=== PATIENT | female | born 1960 | race Caucasian/White ===

== ENCOUNTER 2019-06-25 11:23 | Inpatient (IN) | payer OTHER, MEDICARE ==
[~2019-06-25] VITALS: Ht 152.4 cm; Wt 98.0 kg
[2019-06-25] MEDS ORDERED: DEXTROSE 50% 25 GM / 50ML DISP.SYRIN. IV ONE ×2 (12:15)
[2019-06-25] MEDS ORDERED: IV DEXTROSE 5% - 0.9 % NACL 1,000 ML IV ONE (12:15)
[2019-06-25 12:24] LABS: BASO % 0 % (0-3); EOS # 0.1 x10^3/uL (0.0-0.7); EOS % 2 % (0-3); HEMATOCRIT 40.3 % (36.0-47.0); HEMOGLOBIN 13.5 g/dL (12.0-15.5); LYMPH # 2.7 x10^3/uL (1.0-4.8); LYMPH % 43 % (24-48); MEAN CORPUSCULAR HEMOGLOBIN 30 pg (25-35); MEAN CORPUSCULAR HGB CONC 33 g/dL (31-37); MEAN CORPUSCULAR VOLUME 89 fL (79-100); MONO # 0.5 x10^3/uL (0.0-1.1); MONO % 7 % (0-9); NEUT # 2.9 x10^3/uL (1.8-7.7); NEUT % 47 % (31-73); PLATELET COUNT 178 x10^3/uL (140-400); RED BLOOD COUNT 4.52 x10^6/uL (3.50-5.40); RED CELL DISTRIBUTION WIDTH 14.5 % (11.5-14.5); WHITE BLOOD COUNT 6.2 x10^3/uL (4.0-11.0)
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
[2019-06-25 12:36] LABS: CALCIUM 8.6 mg/dL (8.5-10.1); CREATININE 0.8 mg/dL (0.6-1.0); GFR 73.2; POTASSIUM 3.6 mmol/L (3.5-5.1)
--- NOTE | 2019-06-25 12:38 | RAD ---
Exam performed: One view chest. Indication: Altered mental status Date of Service: 06/25/2019 12:11 PM Comparison: None available. Single AP upright portable view chest findings: Cardiomediastinal silhouette is within limits of normal. There is a nodularity/opacity in the left upper lobe as indicated on the image. The right lung is clear. No pleural effusion or pneumothorax seen. The bony structures are normal. Impression: Nodularity/infiltrate in the left upper lobe. Follow-up 2 views chest of appropriate therapy may be obtained to ensure interval resolution. Electronically signed by: Toshia Dominguez MD (06/25/2019 12:35 PM) [facility]
[2019-06-25 12:41] LABS: ALBUMIN 3.6 g/dL (3.4-5.0); ALBUMIN/GLOBULIN RATIO 1.1 (1.0-1.7); TOTAL BILIRUBIN 0.2 mg/dL (0.2-1.0); TOTAL PROTEIN 6.9 g/dL (6.4-8.2)
[2019-06-25] MEDS ORDERED: cefTRIAXone IV Push 1 GM VIAL. IVP ONE (13:00)
--- NOTE | 2019-06-25 13:08 | RAD ---
Exam performed: CT scan of the head without contrast. Date of Service: 06/25/2019. Comparison: None available. Clinical History: Altered mental status. Technique: Helical acquisitions are obtained from the foramen magnum to the vertex without intravenous administration of contrast. Findings: The ventricles are midline without evidence of dilatation. Normal kim-white differentiation is maintained. There is no extra axial fluid collection, intraparenchymal hemorrhage or mass lesion. The visualized portions of the orbits, paranasal sinuses and the mastoid air cells appear clear. The calvarium is intact. Impression: 1. No acute intracranial process detected. PQRS Compliance Statement: One or more of the following individualized dose reduction techniques were utilized for this examination: 1. Automated exposure control 2. Adjustment of the mA and/or kV according to patient size 3. Use of iterative reconstruction technique Electronically signed by: Toshia Dominguez MD (06/25/2019 1:05 PM) [facility]
[2019-06-25 13:42] LABS: BILIRUBIN,URINE NEGATIVE (NEG); CLARITY,URINE CLEAR; COLOR,URINE YELLOW; NITRITE,URINE NEGATIVE (NEG); PH,URINE 6.5; PROTEIN,URINE NEGATIVE (NEG-TRACE); UROBILINOGEN,URINE 0.2 mg/dL (0.2 mg/dL)
[2019-06-25 13:54] LABS: BACTERIA,URINE FEW /HPF (0-FEW); RBC,URINE 0 /HPF (0-2); SQUAMOUS EPITHELIAL CELL,UR FEW /LPF; WBC,URINE 0 /HPF (0-4)
[2019-06-25] MEDS ORDERED: IV DEXTROSE 5%-LACT RINGERS 1,000 ML IV ONE ×2 (14:00)
[2019-06-25] MEDS ORDERED: PIP/TAZO PER PHARMACY MC PRN (14:00)
[2019-06-25] MEDS ORDERED: PIPERACILLIN/TAZOBACTAM 3.375 GM in IV NORMAL SALINE 50ML 50 ML IV ONE (14:00)
[2019-06-25] MEDS ORDERED: ONDANSETRON PF 4 MG/2 ML VIAL. IV PRN (14:30)
[2019-06-25] MEDS ORDERED: ACETAMINOPHEN 325 MG TABLET. PO PRN (14:30)
[2019-06-25] MEDS ORDERED: fentaNYL PF VIAL 100 MCG/2 ML VIAL IV PRN (14:30)
[2019-06-25] MEDS ORDERED: IV NORMAL SALINE 1000ML BAG 1,000 ML IV ONE ×2 (15:45)
[2019-06-25] MEDS ORDERED: DEXTROSE 50% 25 GM / 50ML DISP.SYRIN. IV PRN (17:00)
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
[2019-06-25 17:15] VITALS: BP 141/76
[2019-06-25] MEDS: INSULIN LISPRO 300 UNITS/3 ML VIAL. SQ SCH (17:30)
[2019-06-25] MEDS ORDERED: MULT-245 PO (17:51)
[2019-06-25] MEDS ORDERED: PIPERACILLIN/TAZOBACTAM 3.375 GM in IV NORMAL SALINE 50ML 50 ML IV SCH (18:00)
[2019-06-25] MEDS ORDERED: EMTR1TAB8 PO (18:08)
[2019-06-25] MEDS ORDERED: POLY17PO29 PO (18:08)
[2019-06-25] MEDS ORDERED: ONDA4TAB7 PO (18:08)
[2019-06-25] MEDS ORDERED: FAMO20TA5 PO (18:08)
[2019-06-25] MEDS ORDERED: MIRT45TA53 PO (18:08)
[2019-06-25] MEDS ORDERED: ZOLP10TA4 PO (18:08)
[2019-06-25] MEDS ORDERED: PHEN37.53 PO (18:08)
[2019-06-25] MEDS ORDERED: ATOR10TA60 PO (18:08)
[2019-06-25] MEDS ORDERED: LACT1CAP29 PO (18:08)
[2019-06-25] MEDS ORDERED: ESTR42.53 VG (18:08)
[2019-06-25] MEDS ORDERED: AZEL137S3 NS (18:08)
[2019-06-25] MEDS ORDERED: PREG100C PO (18:08)
[2019-06-25] MEDS ORDERED: LEVO75TA5 PO (18:08)
[2019-06-25] MEDS ORDERED: METF10007 PO (18:08)
[2019-06-25] MEDS ORDERED: ESTR1PAT42 TD (18:08)
[2019-06-25] MEDS ORDERED: PRAZ1CAP2 PO (18:08)
[2019-06-25] MEDS ORDERED: FEXO180T81 PO (18:08)
[2019-06-25] MEDS ORDERED: CARB200T PO (18:08)
[2019-06-25] MEDS ORDERED: FLUT9.9S NS (18:08)
[2019-06-25] MEDS ORDERED: CYCL1DRO EACHEYE (18:08)
[2019-06-25] MEDS ORDERED: ARIP10TA9 PO (18:08)
[2019-06-25] MEDS ORDERED: LIDO1ADH TP (18:08)
[2019-06-25] MEDS ORDERED: SERT100T PO (18:08)
[2019-06-25] MEDS ORDERED: ROPI3TAB PO (18:08)
[2019-06-25] MEDS ORDERED: VENTOLIN HFA18 GM INH (18:08)
[2019-06-25] MEDS ORDERED: DOCU-109 PO (18:08)
[2019-06-25] MEDS ORDERED: FLUT1DIS3 IH (18:08)
[2019-06-25] MEDS: DOXYCYCLINE HYCLATE 100 MG in IV DEXTROSE 5% 100ML 100 ML IV SCH (18:40)
[2019-06-25] MEDS: cefTRIAXone IV Push 1 GM VIAL. IVP SCH (18:42)
[2019-06-25 19:00] VITALS: BP 127/66
[2019-06-25] MEDS ORDERED: carBAMazepine 200 MG TABLET PO SCH (21:30)
[2019-06-25 23:10] VITALS: BP 124/74
[2019-06-25] MEDS: ZOLPIDEM 5 MG TABLET. PO PRN (23:18)
[2019-06-25] MEDS: DOCUSATE SODIUM 100 MG CAPSULE. PO SCH (23:19)
[2019-06-25] MEDS: PREGABALIN 50 MG CAPSULE PO SCH (23:19)
[2019-06-25] MEDS: MIRTAZAPINE 15 MG TABLET PO SCH (23:20)
[2019-06-25] MEDS: ONDANSETRON ODT 4 MG TAB.RAPDIS. PO SCH (23:21)
[2019-06-25] MEDS: PRAZOSIN 1 MG CAPSULE. PO SCH (23:21)
[2019-06-25] MEDS: carBAMazepine 200 MG TABLET PO SCH (23:21)
[2019-06-25] MEDS: cycloSPORINE 0.05% OPHTH DROPERETTE. OU SCH (23:31)
[2019-06-25] MEDS: ALBUTEROL SULFATE 2.5 MG/3 ML NEBU. NEB SCH (23:33)
[2019-06-26] MEDS ORDERED: NON FORMULARY ITEM (Albuterol Sulfate (Ventolin Hfa Inhaler) 2 PUFF) INH SCH
[2019-06-26 03:00] VITALS: BP 107/59
[2019-06-26] MEDS: ALBUTEROL SULFATE 2.5 MG/3 ML NEBU. NEB SCH ×6 (06:00→23:26)
[2019-06-26] MEDS: ONDANSETRON ODT 4 MG TAB.RAPDIS. PO SCH ×3 (06:00→21:21)
[2019-06-26] MEDS: LEVOTHYROXINE 75 MCG TABLET PO SCH (06:20)
[2019-06-26 07:00] VITALS: BP 97/47
[2019-06-26] MEDS: BUDESONIDE 0.5 MG/2 ML NEBU. NEB SCH ×2 (07:16→20:11)
[2019-06-26] MEDS: INSULIN LISPRO 300 UNITS/3 ML VIAL. SQ SCH ×3 (08:00→16:47)
[2019-06-26] MEDS: metFORMIN 500 MG TABLET PO SCH ×2 (08:00→12:52)
[2019-06-26] MEDS: FLUTICASONE 50MCG/NASAL SPRAY 16GM BOTTLE. NS SCH (08:24)
[2019-06-26] MEDS: AZELASTINE NASAL SPRAY 30ML BOTTLE. NS SCH ×2 (08:24→21:14)
[2019-06-26] MEDS: LIDOCAINE (700MG/PATCH) PATCH. TD SCH (08:24)
[2019-06-26] MEDS: POLYETHYLENE GLYCOL 3350 17 GM PACKET. PO SCH (08:25)
[2019-06-26] MEDS: ARIPiprazole 5 MG TABLET PO SCH (08:25)
[2019-06-26] MEDS: EMTRICITAB/TENOFOVIR 200/300MG TABLET. PO SCH (08:25)
[2019-06-26] MEDS: LACTOBACILLUS RHAMNOSUS GG 1 CAPSULE. PO SCH (08:26)
[2019-06-26] MEDS: PREGABALIN 50 MG CAPSULE PO SCH ×3 (08:26→21:13)
[2019-06-26] MEDS: SERTRALINE 50 MG TABLET. PO SCH (08:26)
[2019-06-26] MEDS: CETIRIZINE HCL 10 MG TABLET. PO SCH (08:26)
[2019-06-26] MEDS: DOCUSATE SODIUM 100 MG CAPSULE. PO SCH ×2 (08:26→21:13)
[2019-06-26] MEDS: MULTIVITAMIN with MINERAL TABLET. PO SCH (08:27)
[2019-06-26] MEDS: cycloSPORINE 0.05% OPHTH DROPERETTE. OU SCH ×2 (08:27→21:13)
[2019-06-26] MEDS: carBAMazepine 200 MG TABLET PO SCH ×2 (08:27→21:13)
[2019-06-26] MEDS: FAMOTIDINE 20 MG TABLET. PO SCH (08:27)
[2019-06-26] MEDS: DOXYCYCLINE HYCLATE 100 MG in IV DEXTROSE 5% 100ML 100 ML IV SCH ×2 (08:28→21:11)
[2019-06-26] MEDS ORDERED: rOPINIRole 1 MG TABLET. PO SCH (09:00)
[2019-06-26] MEDS ORDERED: NON FORMULARY ITEM (Fluticasone/Salmeterol (Advair 250-50 Diskus) 1 PUFF) IH SCH (09:00)
--- NOTE | 2019-06-26 10:17 | PDOC3 ---
Discharge Summary Visit Information Date of Admission: Jun 25, 2019 Date of Discharge: Jun 26, 2019 Admitting Diagnosis Comment: She came in for incidental findingiof nodularity or haziness (BERENICE) non smoker, She takes HIV as preventative, She was confused bec BS 40s, on metformin only and admitted did not eat bec had some plans with the hubby, SHe is better now with normalization of BS. I rxd z pack, She was getting doxy by colleague, HOme today with no PT needs and no change in meds except z pack Cancel neuro consult Thad Gutiérrez Final Diagnosis Problems Medical Problems: (1) Hypoglycemia Status: Acute (2) Pneumonia Status: Acute Brief Hospital Course Allergies Allergies Coded Allergies Type Severity Reaction Last Updated Verified Sulfa (Sulfonamide Antibiotics) Allergy Intermediate 06/25/19 Yes meperidine Allergy Intermediate 06/25/19 Yes Vital Signs Vital Signs Date Time Temp Pulse Resp B/P (MAP) Pulse Ox O2 Delivery O2 Flow Rate FiO2 06/26/19 07:19 98 Room Air 06/26/19 07:00 97.4 77 18 97/47 (64) 97.4 Lab Results Laboratory Tests Test 06/25/19 11:54 06/25/19 12:00 06/25/19 12:34 06/25/19 13:07 Glucose (Fingerstick) 45 mg/dL (70-99) 195 mg/dL (70-99) 151 mg/dL (70-99) White Blood Count 6.2 x10^3/uL (4.0-11.0) Red Blood Count 4.52 x10^6/uL (3.50-5.40) Hemoglobin 13.5 g/dL (12.0-15.5) Hematocrit 40.3 % (36.0-47.0) Mean Corpuscular Volume 89 fL (79-100) Mean Corpuscular Hemoglobin 30 pg (25-35) Mean Corpuscular Hemoglobin Concent 33 g/dL (31-37) Red Cell Distribution Width 14.5 % (11.5-14.5) Platelet Count 178 x10^3/uL (140-400) Neutrophils (%) (Auto) 47 % (31-73) Lymphocytes (%) (Auto) 43 % (24-48) Monocytes (%) (Auto) 7 % (0-9) Eosinophils (%) (Auto) 2 % (0-3) Basophils (%) (Auto) 0 % (0-3) Neutrophils # (Auto) 2.9 x10^3/uL (1.8-7.7) Lymphocytes # (Auto) 2.7 x10^3/uL (1.0-4.8) Monocytes # (Auto) 0.5 x10^3/uL (0.0-1.1) Eosinophils # (Auto) 0.1 x10^3/uL (0.0-0.7) Basophils # (Auto) 0.0 x10^3/uL (0.0-0.2) Sodium Level 139 mmol/L (136-145) Potassium Level 3.6 mmol/L (3.5-5.1) Chloride Level 104 mmol/L (98-107) Carbon Dioxide Level 25 mmol/L (21-32) Anion Gap 10 (6-14) Blood Urea Nitrogen 12 mg/dL (7-20) Creatinine 0.8 mg/dL (0.6-1.0) Estimated GFR (Cockcroft-Gault) 73.2 BUN/Creatinine Ratio 15 (6-20) Glucose Level 61 mg/dL (70-99) Lactic Acid Level 2.3 mmol/L (0.4-2.0) Calcium Level 8.6 mg/dL (8.5-10.1) Total Bilirubin 0.2 mg/dL (0.2-1.0) Aspartate Amino Transf (AST/SGOT) 23 U/L (15-37) Alanine Aminotransferase (ALT/SGPT) 14 U/L (14-59) Alkaline Phosphatase 96 U/L (46-116) Troponin I Quantitative < 0.017 ng/mL (0.000-0.055) Total Protein 6.9 g/dL (6.4-8.2) Albumin 3.6 g/dL (3.4-5.0) Albumin/Globulin Ratio 1.1 (1.0-1.7) Test 06/25/19 13:40 06/25/19 13:50 06/25/19 16:02 06/25/19 17:10 Urine Collection Type Unknown Urine Color Yellow Urine Clarity Clear Urine pH 6.5 Urine Specific [place] 1.010 Urine Protein Negative mg/dL (NEG-TRACE) Urine Glucose (UA) 100 mg/dL (NEG) Urine Ketones (Stick) Negative mg/dL (NEG) Urine Blood Negative (NEG) Urine Nitrite Negative (NEG) Urine Bilirubin Negative (NEG) Urine Urobilinogen Dipstick 0.2 mg/dL (0.2 mg/dL) Urine Leukocyte Esterase Negative (NEG) Urine RBC 0 /HPF (0-2) Urine WBC 0 /HPF (0-4) Urine Squamous Epithelial Cells Few /LPF Urine Bacteria Few /HPF (0-FEW) Glucose (Fingerstick) 91 mg/dL (70-99) 136 mg/dL (70-99) Lactic Acid Level 1.2 mmol/L (0.4-2.0) Procalcitonin < 0.10 ng/mL (0.00-0.10) Test 06/25/19 17:23 06/25/19 18:17 06/25/19 19:25 06/25/19 19:55 Glucose (Fingerstick) 94 mg/dL (70-99) 110 mg/dL (70-99) 73 mg/dL (70-99) Lactic Acid Level 0.9 mmol/L (0.4-2.0) Test 06/25/19 21:17 06/25/19 22:02 06/25/19 23:09 06/26/19 02:06 Glucose (Fingerstick) 72 mg/dL (70-99) 95 mg/dL (70-99) 103 mg/dL (70-99) 110 mg/dL (70-99) Test 06/26/19 03:24 06/26/19 05:13 06/26/19 07:10 06/26/19 07:53 Glucose (Fingerstick) 112 mg/dL (70-99) 97 mg/dL (70-99) 120 mg/dL (70-99) 101 mg/dL (70-99) Test 06/26/19 09:19 Glucose (Fingerstick) 224 mg/dL (70-99) Laboratory Tests Test 06/25/19 11:54 06/25/19 12:00 06/25/19 12:34 06/25/19 13:07 Glucose (Fingerstick) 45 mg/dL (70-99) 195 mg/dL (70-99) 151 mg/dL (70-99) White Blood Count 6.2 x10^3/uL (4.0-11.0) Red Blood Count 4.52 x10^6/uL (3.50-5.40) Hemoglobin 13.5 g/dL (12.0-15.5) Hematocrit 40.3 % (36.0-47.0) Mean Corpuscular Volume 89 fL (79-100) Mean Corpuscular Hemoglobin 30 pg (25-35) Mean Corpuscular Hemoglobin Concent 33 g/dL (31-37) Red Cell Distribution Width 14.5 % (11.5-14.5) Platelet Count 178 x10^3/uL (140-400) Neutrophils (%) (Auto) 47 % (31-73) Lymphocytes (%) (Auto) 43 % (24-48) Monocytes (%) (Auto) 7 % (0-9) Eosinophils (%) (Auto) 2 % (0-3) Basophils (%) (Auto) 0 % (0-3) Neutrophils # (Auto) 2.9 x10^3/uL (1.8-7.7) Lymphocytes # (Auto) 2.7 x10^3/uL (1.0-4.8) Monocytes # (Auto) 0.5 x10^3/uL (0.0-1.1) Eosinophils # (Auto) 0.1 x10^3/uL (0.0-0.7) Basophils # (Auto) 0.0 x10^3/uL (0.0-0.2) Sodium Level 139 mmol/L (136-145) Potassium Level 3.6 mmol/L (3.5-5.1) Chloride Level 104 mmol/L (98-107) Carbon Dioxide Level 25 mmol/L (21-32) Anion Gap 10 (6-14) Blood Urea Nitrogen 12 mg/dL (7-20) Creatinine 0.8 mg/dL (0.6-1.0) Estimated GFR (Cockcroft-Gault) 73.2 BUN/Creatinine Ratio 15 (6-20) Glucose Level 61 mg/dL (70-99) Lactic Acid Level 2.3 mmol/L (0.4-2.0) Calcium Level 8.6 mg/dL (8.5-10.1) Total Bilirubin 0.2 mg/dL (0.2-1.0) Aspartate Amino Transf (AST/SGOT) 23 U/L (15-37) Alanine Aminotransferase (ALT/SGPT) 14 U/L (14-59) Alkaline Phosphatase 96 U/L (46-116) Troponin I Quantitative < 0.017 ng/mL (0.000-0.055) Total Protein 6.9 g/dL (6.4-8.2) Albumin 3.6 g/dL (3.4-5.0) Albumin/Globulin Ratio 1.1 (1.0-1.7) Test 06/25/19 13:40 06/25/19 13:50 06/25/19 16:02 06/25/19 17:10 Urine Collection Type Unknown Urine Color Yellow Urine Clarity Clear Urine pH 6.5 Urine Specific [place] 1.010 Urine Protein Negative mg/dL (NEG-TRACE) Urine Glucose (UA) 100 mg/dL (NEG) Urine Ketones (Stick) Negative mg/dL (NEG) Urine Blood Negative (NEG) Urine Nitrite Negative (NEG) Urine Bilirubin Negative (NEG) Urine Urobilinogen Dipstick 0.2 mg/dL (0.2 mg/dL) Urine Leukocyte Esterase Negative (NEG) Urine RBC 0 /HPF (0-2) Urine WBC 0 /HPF (0-4) Urine Squamous Epithelial Cells Few /LPF Urine Bacteria Few /HPF (0-FEW) Glucose (Fingerstick) 91 mg/dL (70-99) 136 mg/dL (70-99) Lactic Acid Level 1.2 mmol/L (0.4-2.0) Procalcitonin < 0.10 ng/mL (0.00-0.10) Test 06/25/19 17:23 06/25/19 18:17 06/25/19 19:25 06/25/19 19:55 Glucose (Fingerstick) 94 mg/dL (70-99) 110 mg/dL (70-99) 73 mg/dL (70-99) Lactic Acid Level 0.9 mmol/L (0.4-2.0) Test 06/25/19 21:17 06/25/19 22:02 06/25/19 23:09 06/26/19 02:06 Glucose (Fingerstick) 72 mg/dL (70-99) 95 mg/dL (70-99) 103 mg/dL (70-99) 110 mg/dL (70-99) Test 06/26/19 03:24 06/26/19 05:13 06/26/19 07:10 06/26/19 07:53 Glucose (Fingerstick) 112 mg/dL (70-99) 97 mg/dL (70-99) 120 mg/dL (70-99) 101 mg/dL (70-99) Test 06/26/19 09:19 Glucose (Fingerstick) 224 mg/dL (70-99) Brief Hospital Course Ms. Pederson is a 58 old [sex] who presented with [ ] Discharge Information Scheduled Albuterol Sulfate (Ventolin Hfa Inhaler) 18 Gm Hfa.aer.ad, 2 PUFF INH Q6HRS for FOR ASTHMA, Ref 0 (Reported) Entered as Reported by: JOSE ALEJANDRO CHAVEZ on 06/25/191807 Last Action: Converted on 06/25/192214 by MANN MEAD MD Aripiprazole (Abilify) 10 Mg Tablet, 1 TAB PO DAILY for s for 30 Days, #30 Ref 0 (Reported) Entered as Reported by: JOSE ALEJANDRO CHAVEZ on 06/25/191807 Last Action: Converted on 06/25/192214 by MANN MEAD MD Atorvastatin Calcium (Atorvastatin Calcium) 10 Mg Tablet, 1 TAB PO DAILY for hld, #30 Ref 5 (Reported) Entered as Reported by: JOSE ALEJANDRO CHAVEZ on 06/25/191807 Last Action: Continued on 06/25/192214 by MANN MEAD MD Azelastine Hcl (Azelastine Hcl) 137 Mcg/0.137 Ml [place].pump, 2 SPRAY NS BID for n for 30 Days, #30 Ref 0 (Reported) Entered as Reported by: JOSE ALEJANDRO CHAVEZ on 06/25/191807 Last Action: Continued on 06/25/192214 by MANN MEAD MD Carbamazepine (Tegretol) 200 Mg Tablet, 1 TAB PO BID for nerve pain, #60 Ref 1 (Reported) Entered as Reported by: JOSE ALEJANDRO CHAVEZ on 06/25/191807 Last Action: Continued on 06/25/192214 by MANN MEAD MD Cyclosporine (Restasis) 1 Each Drope[place], 1 DROP EACHEYE BID for dry eye, #60 Ref 3 (Reported) Entered as Reported by: JOSE ALEJANDRO CHAVEZ on 06/25/191807 Last Action: Continued on 06/25/192214 by MANN MEAD MD Docusate Sodium (Colace) 100 Mg Capsule, 1 CAP PO BID for constipation for 30 Days, #60 Ref 0 (Reported) Entered as Reported by: JOSE ALEJANDRO CHAVEZ on 06/25/191807 Last Action: Continued on 06/25/192214 by MANN MEAD MD Emtricitabine/Tenofovir (Truvada 200 Mg-300 Mg Tablet) 1 Each Tablet, 1 TAB PO DAILY for preventive for 30 Days, #30 Ref 0 (Reported) Entered as Reported by: JOSE ALEJANDRO CHAVEZ on 06/25/191807 Last Action: Continued on 06/25/192214 by MANN MEAD MD Estradiol (Estrace) 42.5 Gm Cream.appl, 1 GM VG 3X/WEEK for v, #1 Ref 11 (Reported) Entered as Reported by: JOSE ALEJANDRO CHAVEZ on 06/25/191807 Last Action: Continued on 06/25/192214 by MANN MEAD MD Estradiol (Climara) 1 Each Patch.tdwk, 1 PATCH TD WEEKLY for h for 28 Days, #4 Ref 0 (Reported) Entered as Reported by: JOSE ALEJANDRO CHAVEZ on 06/25/191807 Last Action: Converted on 06/25/192214 by MANN MEAD MD Famotidine (Famotidine) 20 Mg Tablet, 20 MG PO DAILY for gerd, (Reported) Entered as Reported by: JOSE ALEJANDRO CHAVEZ on 06/25/191807 Last Action: Continued on 06/25/192214 by MANN MEAD MD Fexofenadine Hcl (Seema Allergy) 180 Mg Tablet, 1 TAB PO DAILY for allergy symptoms for 14 Days, #14 Ref 0 (Reported) Entered as Reported by: JOSE ALEJANDRO CHAVEZ on 06/25/191807 Last Action: Converted on 06/25/192214 by MANN MEAD MD Fluticasone Propionate (Flonase Allergy Relief) 9.9 Ml [place].susp, 2 SPRAYS NS DAILY for allergy, (Reported) Entered as Reported by: JOSE ALEJANDRO CHAVEZ on 06/25/191807 Last Action: Converted on 06/25/192214 by MANN MEAD MD Fluticasone/Salmeterol (Advair 250-50 Diskus) 1 Each Disk.w.dev, 1 PUFF IH BID for ashtma, #3 Ref 3 (Reported) Entered as Reported by: JOSE ALEJANDRO CHAVEZ on 06/25/191807 Last Action: Converted on 06/25/192214 by MANN MEAD MD Lactobacillus Combo No.10 (Probiotic) 1 Each Capsule, 1 TAB PO DAILY for ppx for 30 Days, #30 Ref 0 (Reported) Entered as Reported by: JOSE ALEJANDRO CHAVEZ on 06/25/191807 Last Action: Converted on 06/25/192214 by MANN MEAD MD Levothyroxine Sodium (Levothyroxine Sodium) 75 Mcg Tablet, 1 TAB PO DAILY for hypothy, #30 Ref 5 (Reported) Entered as Reported by: JOSE ALEJANDRO CHAVEZ on 06/25/191807 Last Action: Continued on 06/25/192214 by MANN MEAD MD Lidocaine/Menthol (Lidopatch) 1 Each Adh..patch, 1 EACH TP DAILY for pain, (Reported) Entered as Reported by: JOSE ALEJANDRO CHAVEZ on 06/25/191807 Last Action: Converted on 06/25/192214 by MANN MEAD MD Metformin Hcl (Metformin Hcl) 1,000 Mg Tablet, 1,000 MG PO BIDWMEALS for DM, (Reported) Entered as Reported by: JOSE ALEJANDRO CHAVEZ on 06/25/191807 Last Action: Converted on 06/25/192214 by MANN MEAD MD Mirtazapine (Mirtazapine) 45 Mg Tab.rapdis, 1 TAB PO QHS for d for 30 Days, #30 Ref 0 (Reported) Entered as Reported by: JOSE ALEJANDRO CHAVEZ on 06/25/191807 Last Action: Converted on 06/25/192214 by MANN MEAD MD Multivitamin (Multi Vitamin Daily) 1 Each Tablet, 1 TAB PO DAILY for supp for 30 Days, #30 Ref 0 (Reported) Entered as Reported by: JOSE ALEJANDRO CHAVEZ on 06/25/191750 Last Action: Converted on 06/25/192214 by MANN MEAD MD Ondansetron Hcl (Zofran) 4 Mg Tablet, 1 TAB PO Q8HRS for nausea, #30 (Reported) Entered as Reported by: JOSE ALEJANDRO CHAVEZ on 06/25/191807 Last Action: Converted on 06/25/192214 by MANN MEAD MD Phentermine Hcl (Phentermine Hcl) 37.5 Mg Capsule, 1 CAP PO DAILYWBKFT for wt loss, #30 Ref 2 (Reported) Entered as Reported by: JOSE ALEJANDRO CHAVEZ on 06/25/191807 Last Action: New Order on 06/25/191807 by JOSE ALEJANDRO CHAVEZ Polyethylene Glycol 3350 (Miralax) 17 Gm Powd.pack, 1 PACKET PO DAILY for constipation for 2 Days, #2 Ref 0 (Reported) dissolve in water Entered as Reported by: JOSE ALEJANDRO CHAVEZ on 06/25/191807 Last Action: Continued on 06/25/192214 by MANN MEAD MD Prazosin Hcl (Prazosin Hcl) 1 Mg Capsule, 3 MG PO HS for PTSD, (Reported) Entered as Reported by: JOSE ALEJANDRO CHAVEZ on 06/25/191807 Last Action: Continued on 06/25/192214 by MANN MEAD MD Pregabalin (Lyrica) 100 Mg Capsule, 1 CAP PO TID for pain, #90 Ref 2 (Reported) Entered as Reported by: JOSE ALEJANDRO CHAVEZ on 06/25/191807 Last Action: Converted on 06/25/192214 by MANN MEAD MD Ropinirole Hcl (Requip) 3 Mg Tablet, 3 MG PO DAILY for RLS, (Reported) Entered as Reported by: JOSE ALEJANDRO CHAVEZ on 06/25/191807 Last Action: Converted on 06/25/192214 by MANN MEAD MD Sertraline Hcl (Zoloft) 100 Mg Tablet, 150 MG PO DAILY for ANTI-DEPRESSANT, Ref 0 (Reported) Entered as Reported by: JOSE ALEJANDRO CHAVEZ on 06/25/191807 Last Action: Converted on 06/25/192214 by MANN MEAD MD Scheduled PRN Zolpidem Tartrate (Zolpidem Tartrate) 10 Mg Tablet, 10 MG PO PRN QHS PRN for INSOMNIA, Ref 0 (Reported) Entered as Reported by: JOSE ALEJANDRO CHAVEZ on 06/25/191807 Last Action: New Order on 06/25/191807 by RAE SHI MD Jun 26, 2019 10:17
[2019-06-26 11:05] VITALS: BP 121/63
[2019-06-26 14:41] VITALS: BP 99/47
[2019-06-26] MEDS: cefTRIAXone IV Push 1 GM VIAL. IVP SCH (17:51)
[2019-06-26] MEDS: IV DEXTROSE 5%-LACT RINGERS 1,000 ML IV SCH (17:56)
[2019-06-26 19:10] VITALS: BP 140/76
[2019-06-26] MEDS: PATCH REMOVAL. MC SCH (21:00)
[2019-06-26] MEDS: ATORVASTATIN CALCIUM 10 MG TABLET. PO SCH (21:12)
[2019-06-26] MEDS: MIRTAZAPINE 15 MG TABLET PO SCH (21:12)
[2019-06-26] MEDS: PRAZOSIN 1 MG CAPSULE. PO SCH (21:12)
[2019-06-26 22:50] VITALS: BP 112/59
[2019-06-26] MEDS: ZOLPIDEM 5 MG TABLET. PO PRN (23:27)
[2019-06-27 03:10] VITALS: BP 105/58
[2019-06-27] MEDS: IV DEXTROSE 5%-LACT RINGERS 1,000 ML IV SCH ×2 (06:00→20:40)
--- NOTE | 2019-06-27 06:58 | EKG ---
[facility] [address] [place] [address] Test Date: 2019-06-25 Test Time: 12:35:49 Pat Name: CRUZ MAGANA Department: Room: Gender: F [employer]: : 1960 Requested By: ADAN HUFF Order Number: [id number] Reading MD: Measurements Intervals [place] Rate: 56 P: 64 NM: 194 QRS: 36 QRSD: 76 T: 36 QT: 422 QTc: 410 Interpretive Statements SINUS RHYTHM NO SPECIFIC ECG ABNORMALITIES RI6.01 No previous ECG available for comparison
[2019-06-27 07:00] VITALS: BP 123/74
[2019-06-27] MEDS: ALBUTEROL SULFATE 2.5 MG/3 ML NEBU. NEB SCH ×5 (07:47→23:26)
[2019-06-27] MEDS: BUDESONIDE 0.5 MG/2 ML NEBU. NEB SCH ×2 (07:47→19:56)
[2019-06-27] MEDS: ONDANSETRON ODT 4 MG TAB.RAPDIS. PO SCH ×3 (07:54→21:03)
[2019-06-27] MEDS: LEVOTHYROXINE 75 MCG TABLET PO SCH (07:55)
[2019-06-27] MEDS: FAMOTIDINE 20 MG TABLET. PO SCH (07:55)
[2019-06-27] MEDS: PREGABALIN 50 MG CAPSULE PO SCH ×3 (07:56→21:04)
[2019-06-27] MEDS: LACTOBACILLUS RHAMNOSUS GG 1 CAPSULE. PO SCH (07:56)
[2019-06-27] MEDS: DOCUSATE SODIUM 100 MG CAPSULE. PO SCH ×2 (07:57→21:02)
[2019-06-27] MEDS: CETIRIZINE HCL 10 MG TABLET. PO SCH (07:57)
[2019-06-27] MEDS: EMTRICITAB/TENOFOVIR 200/300MG TABLET. PO SCH (07:57)
[2019-06-27] MEDS: ARIPiprazole 5 MG TABLET PO SCH (07:57)
[2019-06-27] MEDS: MULTIVITAMIN with MINERAL TABLET. PO SCH (07:57)
[2019-06-27] MEDS: FLUTICASONE 50MCG/NASAL SPRAY 16GM BOTTLE. NS SCH (07:58)
[2019-06-27] MEDS: AZELASTINE NASAL SPRAY 30ML BOTTLE. NS SCH ×2 (07:58→21:06)
[2019-06-27] MEDS: SERTRALINE 50 MG TABLET. PO SCH (07:58)
[2019-06-27] MEDS: POLYETHYLENE GLYCOL 3350 17 GM PACKET. PO SCH (07:58)
[2019-06-27] MEDS: LIDOCAINE (700MG/PATCH) PATCH. TD SCH ×2 (07:59→09:00)
[2019-06-27] MEDS: metFORMIN 500 MG TABLET PO SCH ×2 (08:00→17:00)
[2019-06-27] MEDS: INSULIN LISPRO 300 UNITS/3 ML VIAL. SQ SCH ×3 (08:00→17:00)
[2019-06-27] MEDS: DOXYCYCLINE HYCLATE 100 MG in IV DEXTROSE 5% 100ML 100 ML IV SCH (08:01)
[2019-06-27] MEDS: carBAMazepine 200 MG TABLET PO SCH ×2 (08:50→21:04)
[2019-06-27] MEDS: cycloSPORINE 0.05% OPHTH DROPERETTE. OU SCH ×2 (08:50→21:02)
[2019-06-27] MEDS ORDERED: ESTRADIOL 0.01% VAGINAL CREAM 42.5GM TUBE. VG SCH ×2 (09:00→18:00)
[2019-06-27 11:00] VITALS: BP 116/66
--- NOTE | 2019-06-27 11:16 | PDOC ---
Provider Note Provider Note she did not dc yesterday bec of BS 40s in the PM NOw BS better Eating Only on metformin at home I wrote rx for glucometer, strips , needles and z pack dc summ done 06/26 Pt seen and examined dw RAE Martinez MD Jun 27, 2019 11:16
--- NOTE | 2019-06-27 12:04 | PDOC ---
Provider Note Provider Note BS 40S AGAIN! cLAIMS ONLY TOOK METFORMIN AT HOME SECOND TIME, SECOND DAY THIS HAPPENED PLAN: CHECK INSULIN ANTIBODIES AND INSULIN LEVELS CHECK C PEPTIDE R./O EXOGENOUS INSULIN INTAKE, IF NEG, AND HYPOGLYCEMIA PERSISTS, MIGHT NEED CT ABD R.O INSULINOMA WHICH IS VERY RARE RAE MORRISON MD Jun 27, 2019 12:04
[2019-06-27] MEDS ORDERED: AZITHROMYCIN 250 MG TABLET. PO ONE (12:30)
[2019-06-27 15:00] VITALS: BP 118/59
[2019-06-27 19:20] VITALS: BP 140/75
[2019-06-27] MEDS: PATCH REMOVAL. MC SCH (21:00)
[2019-06-27] MEDS: PRAZOSIN 1 MG CAPSULE. PO SCH (21:03)
[2019-06-27] MEDS: MIRTAZAPINE 15 MG TABLET PO SCH (21:03)
[2019-06-27] MEDS: ATORVASTATIN CALCIUM 10 MG TABLET. PO SCH (21:03)
[2019-06-27] MEDS: rOPINIRole 1 MG TABLET. PO SCH (21:03)
[2019-06-27 23:00] VITALS: BP 125/57
[2019-06-27] MEDS: ZOLPIDEM 5 MG TABLET. PO PRN (23:04)
[2019-06-28 03:10] VITALS: BP 104/57
[2019-06-28] MEDS: ONDANSETRON ODT 4 MG TAB.RAPDIS. PO SCH ×3 (06:41→21:04)
[2019-06-28] MEDS: LEVOTHYROXINE 75 MCG TABLET PO SCH (06:41)
[2019-06-28 07:00] VITALS: BP 105/59
[2019-06-28] MEDS: ALBUTEROL SULFATE 2.5 MG/3 ML NEBU. NEB SCH ×2 (07:31→19:31)
[2019-06-28] MEDS: BUDESONIDE 0.5 MG/2 ML NEBU. NEB SCH ×2 (07:31→19:31)
[2019-06-28] MEDS: INSULIN LISPRO 300 UNITS/3 ML VIAL. SQ SCH ×2 (08:00→12:00)
[2019-06-28] MEDS: POLYETHYLENE GLYCOL 3350 17 GM PACKET. PO SCH (08:27)
[2019-06-28] MEDS: LIDOCAINE (700MG/PATCH) PATCH. TD SCH (08:28)
[2019-06-28] MEDS: FAMOTIDINE 20 MG TABLET. PO SCH (08:29)
[2019-06-28] MEDS: SERTRALINE 50 MG TABLET. PO SCH (08:29)
[2019-06-28] MEDS: EMTRICITAB/TENOFOVIR 200/300MG TABLET. PO SCH (08:29)
[2019-06-28] MEDS: LACTOBACILLUS RHAMNOSUS GG 1 CAPSULE. PO SCH (08:29)
[2019-06-28] MEDS: ARIPiprazole 5 MG TABLET PO SCH (08:29)
[2019-06-28] MEDS: carBAMazepine 200 MG TABLET PO SCH ×2 (08:30→21:04)
[2019-06-28] MEDS: CETIRIZINE HCL 10 MG TABLET. PO SCH (08:30)
[2019-06-28] MEDS: MULTIVITAMIN with MINERAL TABLET. PO SCH (08:30)
[2019-06-28] MEDS: DOCUSATE SODIUM 100 MG CAPSULE. PO SCH ×2 (08:30→21:04)
[2019-06-28] MEDS: PREGABALIN 50 MG CAPSULE PO SCH ×3 (08:30→21:04)
[2019-06-28] MEDS: cycloSPORINE 0.05% OPHTH DROPERETTE. OU SCH ×2 (08:32→21:03)
[2019-06-28] MEDS: AZELASTINE NASAL SPRAY 30ML BOTTLE. NS SCH ×2 (08:39→21:03)
[2019-06-28] MEDS: FLUTICASONE 50MCG/NASAL SPRAY 16GM BOTTLE. NS SCH (08:39)
[2019-06-28] MEDS ORDERED: AZITHROMYCIN 250 MG TABLET. PO SCH (09:00)
[2019-06-28 09:11] LABS: INSULIN LEVEL 71.8 uIU/mL (2.6-24.9)
[2019-06-28] MEDS ORDERED: CONTRAST GIVEN. MC PRN (09:30)
[2019-06-28] MEDS ORDERED: IOHEXOL 300 MG/ML 100ML VIAL. IV ONE (09:30)
--- NOTE | 2019-06-28 10:37 | RAD ---
EXAM: CT ABDOMEN/PELVIS WITH CONTRAST. HISTORY: Persistent hyperglycemia. Concern for insulinoma. TECHNIQUE: Computed tomography of the abdomen and pelvis was performed after the intravenous administration of iodinated contrast. COMPARISON: None. FINDINGS: Lung windows through the visualized portions of the bases reveal an 8 mm pleural-based nodule in the left base on image 7. Bone windows reveal no suspicious lesions. There are changes of gastric bypass procedure. There is mild wall thickening of the distal esophagus. There is no small bowel obstruction. Sigmoid diverticulosis is moderate. The appendix is not inflamed. The uterus is surgically absent. The liver, pancreas, gallbladder, adrenal glands, spleen and kidneys are unremarkable. No mass is appreciated. There are no pathologically enlarged lymph nodes. IMPRESSION: 1. No mass suggestive of a neuroendocrine neoplasm is identified. If other serologies are positive, gallium-68 dotate PET could increase sensitivity. 2. Mild distal esophageal wall thickening may reflect peristalsis or esophagitis. 3. 8 mm left basilar indeterminate nodule. Follow-up is suggested in 6 months if long-term stability is not already known. *One or more of the following individualized dose reduction techniques were utilized for this examination: 1. Automated exposure control. 2. Adjustment of the mA and/or kV according to patient size. 3. Use of iterative reconstruction technique. Electronically signed by: Sarthak Pereyra MD (06/28/2019 10:35 AM) [facility]
[2019-06-28 11:00] VITALS: BP 124/67
--- NOTE | 2019-06-28 12:27 | PDOC ---
PROGRESS NOTES Chief Complaint Chief Complaint persistent hypoglycemia, (metformin at home only) Obesity CAP History of Present Illness History of Present Illness BS 54 now and she doesnt feel right GAve 2 apple juices, BS 114 SHE DENIES EXOGENOUS INSULIN I CT abd today look for insulinoma: IMPRESSION: 1. No mass suggestive of a neuroendocrine neoplasm is identified. If other serologies are positive, gallium-68 dotate PET could increase sensitivity. 2. Mild distal esophageal wall thickening may reflect peristalsis or esophagitis. 3. 8 mm left basilar indeterminate nodule. Follow-up is suggested in 6 months if long-term stability is not already known. PLAN: Hold dc, THIRD DAY THIS is happening Dextrose iVF on FILE SHE IS EATING Await insulin antibopdies etc Can dc home once SAFELY NOT HYPOGLY ANYMORE SHE ONLY TAKES METFORMIN< WHICH WE HAVE DCD DAY 1 , no insulin at home NO PT needs, home with the on dc Rx alreday on chart - abx z pack for "pna" dw RN Yoing TRANSFER TO NON TELE BED Vitals Vitals Vital Signs Date Time Temp Pulse Resp B/P (MAP) Pulse Ox O2 Delivery O2 Flow Rate FiO2 06/28/19 07:34 93 Room Air 06/28/19 07:00 97.9 65 20 105/59 (74) 97.9 Physical Exam General: Alert, Oriented X3, Cooperative, mild distress Abdomen: Normal bowel sounds, Soft, No tenderness, No hepatosplenomegaly, No masses Extremities: No clubbing, No cyanosis, No edema, Normal pulses, No tenderness/swelling Skin: No rashes, No breakdown, No significant lesion Labs LABS Laboratory Tests Test 06/27/19 13:15 06/27/19 15:18 06/27/19 17:10 06/27/19 20:32 Glucose (Fingerstick) 104 mg/dL (70-99) 140 mg/dL (70-99) 119 mg/dL (70-99) 102 mg/dL (70-99) Test 06/28/19 07:16 06/28/19 11:47 06/28/19 12:09 Glucose (Fingerstick) 84 mg/dL (70-99) 54 mg/dL (70-99) 114 mg/dL (70-99) Assessment and Plan Assessmemt and Plan Problems Medical Problems: (1) Hypoglycemia Status: Acute (2) Pneumonia Status: Acute Comment Review of Relevant I have reviewed the following items yari (where applicable) has been applied. Labs Laboratory Tests Test 06/26/19 13:56 06/26/19 15:10 06/26/19 17:26 06/26/19 19:20 Glucose (Fingerstick) 117 mg/dL (70-99) 114 mg/dL (70-99) 103 mg/dL (70-99) 136 mg/dL (70-99) Test 06/26/19 21:06 06/26/19 23:01 06/27/19 01:03 06/27/19 03:20 Glucose (Fingerstick) 164 mg/dL (70-99) 96 mg/dL (70-99) 174 mg/dL (70-99) 118 mg/dL (70-99) Test 06/27/19 05:20 06/27/19 07:24 06/27/19 09:14 06/27/19 11:46 Glucose (Fingerstick) 91 mg/dL (70-99) 128 mg/dL (70-99) 199 mg/dL (70-99) 55 mg/dL (70-99) Test 06/27/19 12:20 06/27/19 13:15 06/27/19 15:18 06/27/19 17:10 Insulin Level 71.8 uIU/mL (2.6-24.9) C-Peptide 8.3 ng/mL (1.1-4.4) Glucose (Fingerstick) 104 mg/dL (70-99) 140 mg/dL (70-99) 119 mg/dL (70-99) Test 06/27/19 20:32 06/28/19 07:16 06/28/19 11:47 06/28/19 12:09 Glucose (Fingerstick) 102 mg/dL (70-99) 84 mg/dL (70-99) 54 mg/dL (70-99) 114 mg/dL (70-99) Laboratory Tests Test 06/27/19 13:15 06/27/19 15:18 06/27/19 17:10 06/27/19 20:32 Glucose (Fingerstick) 104 mg/dL (70-99) 140 mg/dL (70-99) 119 mg/dL (70-99) 102 mg/dL (70-99) Test 06/28/19 07:16 06/28/19 11:47 06/28/19 12:09 Glucose (Fingerstick) 84 mg/dL (70-99) 54 mg/dL (70-99) 114 mg/dL (70-99) Microbiology 06/25/19 Blood Culture - Preliminary, Resulted NO GROWTH AFTER 2 DAYS Medications Current Medications Dextrose (Dextrose 50%-Water Syringe) 25 gm STK-MED ONCE IV ; Start 06/25/19 at 12:15; Stop 06/25/19 at 12:15; Status DC Dextrose (Dextrose 50%-Water Syringe) 25 gm 1X ONCE IV Last administered on 06/25/19at 12:15; Start 06/25/19 at 12:15; Stop 06/25/19 at 12:18; Status DC Dextrose/Sodium Chloride 1,000 ml @ 75 mls/hr 1X ONCE IV ; Start 06/25/19 at 12:15; Stop 06/26/19 at 01:34; Status DC Ceftriaxone Sodium (Rocephin) 1 gm STK-MED ONCE IVP ; Start 06/25/19 at 13:00; Stop 06/25/19 at 13:00; Status DC Piperacillin Sod/ Tazobactam Sod (Zosyn Per Pharmacy) 1 each PRN DAILY PRN MC SEE COMMENTS; Start 06/25/19 at 14:00; Stop 06/25/19 at 16:56; Status DC Dextrose/Lactated Ringer's 1,000 ml @ 75 mls/hr 1X ONCE IV Last administered on 06/25/19at 14:00; Start 06/25/19 at 14:00; Stop 06/26/19 at 03:19; Status DC Piperacillin Sod/ Tazobactam Sod 3.375 gm/Sodium Chloride 50 ml @ 100 mls/hr 1X ONCE IV Last administered on 06/25/19at 14:13; Start 06/25/19 at 14:00; Stop 06/25/19 at 14:29; Status DC Dextrose/Lactated Ringer's 1,000 ml @ 75 mls/hr 1X ONCE IV ; Start 06/25/19 at 14:00; Stop 06/26/19 at 03:19; Status DC Ondansetron HCl (Zofran) 4 mg PRN Q8HRS PRN IV NAUSEA/VOMITING; Start 06/25/19 at 14:30 Fentanyl Citrate (Fentanyl 2ml Vial) 50 mcg PRN Q1HR PRN IV PAIN; Start at 14:30; Stop 06/26/19 at 14:29; Status UNV Acetaminophen (Tylenol) 650 mg PRN Q4HRS PRN PO FEVER Last administered on 06/25/19at 16:08; Start 06/25/19 at 14:30 Piperacillin Sod/ Tazobactam Sod 3.375 gm/Sodium Chloride 50 ml @ 100 mls/hr Q6HRS IV ; Start 06/25/19 at 18:00; Stop 06/25/19 at 16:56; Status DC Sodium Chloride 1,000 ml @ 1,000 mls/hr 1X ONCE IV ; Start 06/25/19 at 15:45; Stop 06/25/19 at 16:44; Status Cancel Sodium Chloride 1,000 ml @ 1,000 mls/hr 1X ONCE IV ; Start 06/25/19 at 15:45; Stop 06/25/19 at 16:44; Status Cancel Ceftriaxone Sodium (Rocephin) 1 gm Q24H IVP Last administered on 06/26/19at 17:51; Start 06/25/19 at 18:00; Stop 06/27/19 at 12:06; Status DC Doxycycline Hyclate 100 mg/ Dextrose 100 ml @ 50 mls/hr Q12HR IV Last administered on 06/27/19at 08:01; Start 06/25/19 at 18:00; Stop 06/27/19 at 12:06; Status DC Insulin Human Lispro (HumaLOG) 0-5 UNITS TIDWMEALS SQ ; Start 06/25/19 at 17:30 Dextrose (Dextrose 50%-Water Syringe) 12.5 gm PRN Q15MIN PRN IV SEE COMMENTS; Start 06/25/19 at 17:00 Atorvastatin Calcium (Lipitor) 10 mg HS PO Last administered on 06/27/19at 21:03; Start 06/26/19 at 21:00 Azelastine HCl (Astelin) 2 spray BID NS Last administered on 06/28/19at 08:39; Start 06/26/19 at 09:00 Carbamazepine (TEGretol) 200 mg BID PO ; Start 06/25/19 at 21:30; Stop 06/25/19 at 22:21; Status DC Cyclosporine (Restasis) 1 drop BID OU Last administered on 06/28/19 08:32; Start 06/25/19 at 22:30 Docusate Sodium (Colace) 100 mg BID PO Last administered on 06/28/19 08:30; Start 06/25/19 at 22:30 Emtricitabine/ Tenofovir (Truvada 200/300 Mg) 1 tab DAILY PO Last administered on 06/28/19 08:29; Start 06/26/19 at 09:00 Estradiol (Estrace) 1 jennifer 3X/WEEK VG ; Start 06/27/19 at 09:00; Stop 06/27/19 at 08:50; Status DC Famotidine (Pepcid) 20 mg DAILY PO Last administered on 06/28/19 08:29; Start 06/26/19 at 09:00 Levothyroxine Sodium (Synthroid) 75 mcg DAILY06 PO Last administered on 06/28/19at 06:41; Start 06/26/19 at 06:00 Polyethylene Glycol (miraLAX PACKET) 17 gm DAILY PO Last administered on 06/28/19 08:27; Start 06/26/19 at 09:00 Prazosin HCl (Minipress) 3 mg HS PO Last administered on 06/27/19 21:03; Start 06/25/19 at 22:30 Non-Formulary Medication (Albuterol Sulfate (Ventolin Hfa Inhaler)) 2 puff Q6HRS INH ; Start 06/26/19 at 00:00; Status UNV Aripiprazole (Abilify) 10 mg DAILY PO Last administered on 06/28/19 08:29; Start 06/26/19 at 09:00 Estradiol (Climara Weekly) 1 mg WEEKLY TD ; Start 07/02/19 at 09:00 Cetirizine HCl (ZyrTEC) 10 mg DAILY PO Last administered on 06/28/19 08:30; Start 06/26/19 at 09:00 Fluticasone Propionate (Flonase) 2 spray DAILY NS Last administered on 06/28/19 08:39; Start 06/26/19 at 09:00 Non-Formulary Medication (Fluticasone/ Salmeterol (Advair 250-50 Diskus)) 1 puff BID IH ; Start 06/26/19 at 09:00; Status UNV Lactobacillus Rhamnosus (Culturelle) 1 cap DAILY PO Last administered on 06/28/19 08:29; Start 06/26/19 at 09:00 Lidocaine (Lidoderm) 1 patch DAILY TD Last administered on 06/28/19 08:28; Start 06/26/19 at 09:00 Metformin HCl (Glucophage) 1,000 mg BIDWMEALS PO ; Start 06/26/19 at 08:00; Stop 06/28/19 at 09:26; Status DC Mirtazapine (Remeron) 45 mg QHS PO Last administered on 06/27/19 21:03; Start 06/25/19 at 22:30 Multivitamins (Thera M Plus) 1 tab DAILY PO Last administered on 06/28/19 08:30; Start 06/26/19 at 09:00 Ondansetron HCl (Zofran Odt) 4 mg Q8HRS PO Last administered on 06/28/19 06:41; Start 06/25/19 at 22:30 Pregabalin (Lyrica) 100 mg TID PO Last administered on 06/28/19 08:30; Start 06/25/19 at 22:30 Ropinirole HCl (Requip) 3 mg DAILY PO Last administered on 06/26/19 08:25; Start 06/26/19 at 09:00; Stop 06/26/19 at 12:52; Status DC Sertraline HCl (Zoloft) 150 mg DAILY PO Last administered on 06/28/19 08:29; Start 06/26/19 at 09:00 Zolpidem Tartrate (Ambien) 5 mg PRN QHS PRN PO INSOMNIA Last administered on 06/27/19 23:04; Start 06/25/19 at 22:30 Carbamazepine (TEGretol) 200 mg BID PO Last administered on 06/28/19 08:30; Start 06/25/19 at 22:30 Miscellaneous (Lidoderm Patch Removal) 1 ea QHS MC Last administered on 06/26/19 21:00; Start 06/26/19 at 21:00 Budesonide (Pulmicort) 0.5 mg RTBID NEB Last administered on 06/28/19 07:31; Start 06/26/19 at 08:00 Albuterol Sulfate (Ventolin Neb Soln) 2.5 mg Q6H NEB Last administered on 06/27/19at 23:26; Start 06/26/19 at 00:00; Stop 06/28/19 at 07:48; Status DC Albuterol Sulfate (Ventolin Neb Soln) 2.5 mg RTBID NEB Last administered on 06/28/19at 07:31; Start 06/26/19 at 08:00 Ropinirole HCl (Requip) 3 mg HS PO Last administered on 06/27/19at 21:03; Start 06/27/19 at 21:00 Dextrose/Lactated Ringer's 1,000 ml @ 75 mls/hr [id number] IV Last administered on 06/27/19at 06:00; Start 06/26/19 at 18:00 Estradiol (Estrace) 1 jennifer 3X/WEEK@1800 VG Last administered on 06/27/19at 22:00; Start 06/27/19 at 18:00 Azithromycin (Zithromax) 250 mg DAILY PO Last administered on 06/28/19at 08:30; Start 06/28/19 at 09:00 Azithromycin (Zithromax) 500 mg 1X ONCE PO Last administered on 06/27/19at 15:38; Start 06/27/19 at 12:30; Stop 06/27/19 at 12:31; Status DC Iohexol (Omnipaque 300 Mg/ml) 75 ml 1X ONCE IV Last administered on 06/28/19at 09:57; Start 06/28/19 at 09:30; Stop 06/28/19 at 09:31; Status DC Info (CONTRAST GIVEN -- Rx MONITORING) 1 each PRN DAILY PRN MC SEE COMMENTS; Start 06/28/19 at 09:30; Stop 06/30/19 at 09:29 Metformin HCl (Glucophage) 1,000 mg BIDWMEALS PO ; Start 06/30/19 at 17:00 Active Scripts Active Reported Miralax (Polyethylene Glycol 3350) 17 Gm Powd.pack 1 Packet PO DAILY 2 Days dissolve in water Colace (Docusate Sodium) 100 Mg Capsule 1 Cap PO BID 30 Days Seema Allergy (Fexofenadine Hcl) 180 Mg Tablet 1 Tab PO DAILY 14 Days Probiotic (Lactobacillus Combo No.10) 1 Each Capsule 1 Tab PO DAILY 30 Days Tegretol (Carbamazepine) 200 Mg Tablet 1 Tab PO BID Advair 250-50 Diskus (Fluticasone/Salmeterol) 1 Each Disk.w.dev 1 Puff IH BID Famotidine 20 Mg Tablet 20 Mg PO DAILY Metformin Hcl 1,000 Mg Tablet 1,000 Mg PO BIDWMEALS Requip (Ropinirole Hcl) 3 Mg Tablet 3 Mg PO DAILY Atorvastatin Calcium 10 Mg Tablet 1 Tab PO DAILY Zofran (Ondansetron Hcl) 4 Mg Tablet 1 Tab PO Q8HRS Restasis (Cyclosporine) 1 Each Droperette 1 Drop EACHEYE BID Flonase Allergy Relief (Fluticasone Propionate) 9.9 Ml [place].susp 2 Sprays NS DAILY Azelastine Hcl 137 Mcg/0.137 Ml [place].pump 2 [place] NS BID 30 Days Levothyroxine Sodium 75 Mcg Tablet 1 Tab PO DAILY Zolpidem Tartrate 10 Mg Tablet 10 Mg PO PRN QHS PRN Climara (Estradiol) 1 Each Patch.tdwk 1 Patch TD WEEKLY 28 Days Estrace (Estradiol) 42.5 Gm Cream.appl 1 Gm VG 3X/WEEK Truvada 200 Mg-300 Mg Tablet (Emtricitabine/Tenofovir) 1 Each Tablet 1 Tab PO DAILY 30 Days Abilify (Aripiprazole) 10 Mg Tablet 1 Tab PO DAILY 30 Days Zoloft (Sertraline Hcl) 100 Mg Tablet 150 Mg PO DAILY Prazosin Hcl 1 Mg Capsule 3 Mg PO HS Mirtazapine 45 Mg Tab.rapdis 1 Tab PO QHS 30 Days Lyrica (Pregabalin) 100 Mg Capsule 1 Cap PO TID Ventolin Hfa Inhaler (Albuterol Sulfate) 18 Gm Hfa.aer.ad 2 Puff INH Q6HRS Lidopatch (Lidocaine/Menthol) 1 Each Adh..patch 1 Each TP DAILY Phentermine Hcl 37.5 Mg Capsule 1 Cap PO DAILYWBKFT Multi Vitamin Daily (Multivitamin) 1 Each Tablet 1 Tab PO DAILY 30 Days Vitals/I & O Vital Sign - Last 24 Hours 06/27/19 06/27/19 06/27/19 06/27/19 14:21 15:00 19:20 19:56 Temp 98.2 98.9 98.2 98.9 Pulse 78 69 Resp 20 18 B/P (MAP) 118/59 (78) 140/75 (96) Pulse Ox 96 94 95 96 O2 Delivery Room Air Room Air Room Air Room Air 06/27/19 06/27/19 06/27/19 06/28/19 21:03 23:00 23:26 03:10 Temp 99.0 98.1 99.0 98.1 Pulse 69 87 69 Resp 18 20 B/P (MAP) 140/75 125/57 (79) 104/57 (73) Pulse Ox 93 98 O2 Delivery Room Air Room Air BiPAP/CPAP 06/28/19 06/28/19 07:00 07:34 Temp 97.9 97.9 Pulse 65 Resp 20 B/P (MAP) 105/59 (74) Pulse Ox 93 93 O2 Delivery Room Air Room Air Intake and Output 06/27/19 06/27/19 06/28/19 14:59 22:59 06:59 Intake Total 400 ml Output Total 1600 ml 550 ml Balance -1600 ml -150 ml RAE MORRISON MD Jun 28, 2019 12:27
[2019-06-28 15:00] VITALS: BP 114/61
[2019-06-28 19:00] VITALS: BP 145/75
[2019-06-28] MEDS: ATORVASTATIN CALCIUM 10 MG TABLET. PO SCH (21:03)
[2019-06-28] MEDS: rOPINIRole 1 MG TABLET. PO SCH (21:03)
[2019-06-28] MEDS: MIRTAZAPINE 15 MG TABLET PO SCH (21:04)
[2019-06-28] MEDS: PRAZOSIN 1 MG CAPSULE. PO SCH (21:05)
[2019-06-28] MEDS: PATCH REMOVAL. MC SCH (21:07)
[2019-06-28 22:19] VITALS: BP 125/52
[2019-06-28] MEDS: ZOLPIDEM 5 MG TABLET. PO PRN (22:34)
[2019-06-29 03:52] VITALS: BP 109/56
[2019-06-29] MEDS: ONDANSETRON ODT 4 MG TAB.RAPDIS. PO SCH (06:14)
[2019-06-29] MEDS: LEVOTHYROXINE 75 MCG TABLET PO SCH (06:15)
[2019-06-29 07:00] VITALS: BP 112/61
[2019-06-29] MEDS: BUDESONIDE 0.5 MG/2 ML NEBU. NEB SCH (07:21)
[2019-06-29] MEDS: ALBUTEROL SULFATE 2.5 MG/3 ML NEBU. NEB SCH (07:21)
--- NOTE | 2019-06-29 09:56 | PDOC3 ---
Discharge Summary Visit Information Date of Admission: Jun 25, 2019 Date of Discharge: Jun 29, 2019 Admitting Diagnosis Comment: perisistent hypoglycemia on metformin only mild pnA Obesity Transient enceph sec to hypoglycemia Final Diagnosis Problems Medical Problems: (1) Hypoglycemia Status: Acute (2) Pneumonia Status: Acute Brief Hospital Course Allergies Allergies Coded Allergies Type Severity Reaction Last Updated Verified Sulfa (Sulfonamide Antibiotics) Allergy Intermediate 06/25/19 Yes meperidine Allergy Intermediate 06/25/19 Yes Vital Signs Vital Signs Date Time Temp Pulse Resp B/P (MAP) Pulse Ox O2 Delivery O2 Flow Rate FiO2 06/29/19 07:23 91 Room Air 06/29/19 07:00 98.4 62 18 112/61 (78) 98.4 Lab Results Laboratory Tests Test 06/27/19 11:46 06/27/19 12:20 06/27/19 13:15 06/27/19 15:18 Glucose (Fingerstick) 55 mg/dL (70-99) 104 mg/dL (70-99) 140 mg/dL (70-99) Insulin Level 71.8 uIU/mL (2.6-24.9) C-Peptide 8.3 ng/mL (1.1-4.4) Test 06/27/19 17:10 06/27/19 20:32 06/28/19 07:16 06/28/19 11:47 Glucose (Fingerstick) 119 mg/dL (70-99) 102 mg/dL (70-99) 84 mg/dL (70-99) 54 mg/dL (70-99) Test 06/28/19 12:09 06/28/19 16:57 06/28/19 20:52 06/29/19 07:49 Glucose (Fingerstick) 114 mg/dL (70-99) 91 mg/dL (70-99) 99 mg/dL (70-99) 88 mg/dL (70-99) Laboratory Tests Test 06/28/19 11:47 06/28/19 12:09 06/28/19 16:57 06/28/19 20:52 Glucose (Fingerstick) 54 mg/dL (70-99) 114 mg/dL (70-99) 91 mg/dL (70-99) 99 mg/dL (70-99) Test 06/29/19 07:49 Glucose (Fingerstick) 88 mg/dL (70-99) Brief Hospital Course Ms. Pederson is a 58 old whte female brought by bec she was confused, but her BS was 40s. I tried to dc the next day but she would continue to drop BS when off d5. I checked for ct abd for insulinoma thats neg Ordered insulin antibodies too and c peptide but those are sent out ON day 4, we are finally able to maintain BS 80s off dextrose SHE ADAMANTLY denies exogenous insulin intake Home today, no PT needs Z pack for mild PNA on CXR dc 32 Discharge Information Scheduled Albuterol Sulfate (Ventolin Hfa Inhaler) 18 Gm Hfa.aer.ad, 2 PUFF INH Q6HRS for FOR ASTHMA, Ref 0 (Reported) Entered as Reported by: JOSE ALEJANDRO CHAVEZ on 06/25/191807 Last Action: Converted on 06/25/192214 by MANN MEAD MD Aripiprazole (Abilify) 10 Mg Tablet, 1 TAB PO DAILY for s for 30 Days, #30 Ref 0 (Reported) Entered as Reported by: JOSE ALEJANDRO CHAVEZ on 06/25/191807 Last Action: Converted on 06/25/192214 by MANN MEAD MD Atorvastatin Calcium (Atorvastatin Calcium) 10 Mg Tablet, 1 TAB PO DAILY for hld, #30 Ref 5 (Reported) Entered as Reported by: JOSE ALEJANDRO CHAVEZ on 06/25/191807 Last Action: Continued on 06/25/192214 by MANN MEAD MD Azelastine Hcl (Azelastine Hcl) 137 Mcg/0.137 Ml [place].pump, 2 SPRAY NS BID for n for 30 Days, #30 Ref 0 (Reported) Entered as Reported by: JOSE ALEJANDRO CHAVEZ on 06/25/191807 Last Action: Continued on 06/25/192214 by MANN MEAD MD Carbamazepine (Tegretol) 200 Mg Tablet, 1 TAB PO BID for nerve pain, #60 Ref 1 (Reported) Entered as Reported by: JOSE ALEJANDRO CHAVEZ on 06/25/191807 Last Action: Continued on 06/25/192214 by MANN MEAD MD Cyclosporine (Restasis) 1 Each Droperette, 1 DROP EACHEYE BID for dry eye, #60 Ref 3 (Reported) Entered as Reported by: JOSE ALEJANDRO CHAVEZ on 06/25/191807 Last Action: Continued on 06/25/192214 by MANN MEAD MD Docusate Sodium (Colace) 100 Mg Capsule, 1 CAP PO BID for constipation for 30 Days, #60 Ref 0 (Reported) Entered as Reported by: JOSE ALEJANDRO CHAVEZ on 06/25/191807 Last Action: Continued on 06/25/192214 by MANN MEAD MD Emtricitabine/Tenofovir (Truvada 200 Mg-300 Mg Tablet) 1 Each Tablet, 1 TAB PO DAILY for preventive for 30 Days, #30 Ref 0 (Reported) Entered as Reported by: JOSE ALEJANDRO CHAVEZ on 06/25/191807 Last Action: Continued on 06/25/192214 by MANN MEAD MD Estradiol (Estrace) 42.5 Gm Cream.appl, 1 GM VG 3X/WEEK for v, #1 Ref 11 (Reported) Entered as Reported by: JOSE ALEJANDRO CHAVEZ on 06/25/191807 Last Action: Continued on 06/25/192214 by MANN MEAD MD Estradiol (Climara) 1 Each Patch.tdwk, 1 PATCH TD WEEKLY for h for 28 Days, #4 Ref 0 (Reported) Entered as Reported by: JOSE ALEJANDRO CHAVEZ on 06/25/191807 Last Action: Converted on 06/25/192214 by MANN MEAD MD Famotidine (Famotidine) 20 Mg Tablet, 20 MG PO DAILY for gerd, (Reported) Entered as Reported by: JOSE ALEJANDRO CHAVEZ on 06/25/191807 Last Action: Continued on 06/25/192214 by MANN MEAD MD Fexofenadine Hcl (Seema Allergy) 180 Mg Tablet, 1 TAB PO DAILY for allergy symptoms for 14 Days, #14 Ref 0 (Reported) Entered as Reported by: JOSE ALEJANDRO CHAVEZ on 06/25/191807 Last Action: Converted on 06/25/192214 by MANN MEAD MD Fluticasone Propionate (Flonase Allergy Relief) 9.9 Ml [place].susp, 2 SPRAYS NS DAILY for allergy, (Reported) Entered as Reported by: JOSE ALEJANDRO CHAVEZ on 06/25/191807 Last Action: Converted on 06/25/192214 by MANN MEAD MD Fluticasone/Salmeterol (Advair 250-50 Diskus) 1 Each Disk.w.dev, 1 PUFF IH BID for ashtma, #3 Ref 3 (Reported) Entered as Reported by: JOSE ALEJANDRO CHAVEZ on 06/25/191807 Last Action: Converted on 06/25/192214 by MANN MEAD MD Lactobacillus Combo No.10 (Probiotic) 1 Each Capsule, 1 TAB PO DAILY for ppx for 30 Days, #30 Ref 0 (Reported) Entered as Reported by: JOSE ALEJANDRO CHAVEZ on 06/25/191807 Last Action: Converted on 06/25/192214 by MANN MEAD MD Levothyroxine Sodium (Levothyroxine Sodium) 75 Mcg Tablet, 1 TAB PO DAILY for hypothy, #30 Ref 5 (Reported) Entered as Reported by: JOSE ALEJANDRO CHAVEZ on 06/25/191807 Last Action: Continued on 06/25/192214 by MANN MEAD MD Lidocaine/Menthol (Lidopatch) 1 Each Adh..patch, 1 EACH TP DAILY for pain, (Reported) Entered as Reported by: JOSE ALEJANDRO CHAVEZ on 06/25/191807 Last Action: Converted on 06/25/192214 by MANN MEAD MD Metformin Hcl (Metformin Hcl) 1,000 Mg Tablet, 1,000 MG PO BIDWMEALS for DM, (Reported) Entered as Reported by: JOSE ALEJANDRO CHAVEZ on 06/25/191807 Last Action: Converted on 06/25/192214 by MANN MEAD MD Mirtazapine (Mirtazapine) 45 Mg Tab.rapdis, 1 TAB PO QHS for d for 30 Days, #30 Ref 0 (Reported) Entered as Reported by: JOSE ALEJANDRO CHAVEZ on 06/25/191807 Last Action: Converted on 06/25/192214 by MANN MEAD MD Multivitamin (Multi Vitamin Daily) 1 Each Tablet, 1 TAB PO DAILY for supp for 30 Days, #30 Ref 0 (Reported) Entered as Reported by: JOSE ALEJANDRO CHAVEZ on 06/25/191750 Last Action: Converted on 06/25/192214 by MANN MEAD MD Ondansetron Hcl (Zofran) 4 Mg Tablet, 1 TAB PO Q8HRS for nausea, #30 (Reported) Entered as Reported by: JOSE ALEJANDRO CHAVEZ on 06/25/191807 Last Action: Converted on 06/25/192214 by MANN MEAD MD Phentermine Hcl (Phentermine Hcl) 37.5 Mg Capsule, 1 CAP PO DAILYWBKFT for wt loss, #30 Ref 2 (Reported) Entered as Reported by: JOSE ALEJANDRO CHAVEZ on 06/25/191807 Last Action: New Order on 06/25/191807 by JOSE ALEJANDRO CHAVEZ Polyethylene Glycol 3350 (Miralax) 17 Gm Powd.pack, 1 PACKET PO DAILY for constipation for 2 Days, #2 Ref 0 (Reported) dissolve in water Entered as Reported by: JOSE ALEJANDRO CHAVEZ on 06/25/191807 Last Action: Continued on 06/25/192214 by MANN MEAD MD Prazosin Hcl (Prazosin Hcl) 1 Mg Capsule, 3 MG PO HS for PTSD, (Reported) Entered as Reported by: JOSE ALEJANDRO CHAVEZ on 06/25/191807 Last Action: Continued on 06/25/192214 by MANN MEAD MD Pregabalin (Lyrica) 100 Mg Capsule, 1 CAP PO TID for pain, #90 Ref 2 (Reported) Entered as Reported by: JOSE ALEJANDRO CHAVEZ on 06/25/191807 Last Action: Converted on 06/25/192214 by MANN MEAD MD Ropinirole Hcl (Requip) 3 Mg Tablet, 3 MG PO DAILY for RLS, (Reported) Entered as Reported by: JOSE ALEJANDRO CHAVEZ on 06/25/191807 Last Action: Converted on 06/25/192214 by MANN MEAD MD Sertraline Hcl (Zoloft) 100 Mg Tablet, 150 MG PO DAILY for ANTI-DEPRESSANT, Ref 0 (Reported) Entered as Reported by: JOSE ALEJANDRO CHAVEZ on 06/25/191807 Last Action: Converted on 06/25/192214 by MANN MEAD MD Scheduled PRN Zolpidem Tartrate (Zolpidem Tartrate) 10 Mg Tablet, 10 MG PO PRN QHS PRN for INSOMNIA, Ref 0 (Reported) Entered as Reported by: JOSE ALEJANDRO CHAVEZ on 06/25/191807 Last Action: New Order on 06/25/191807 by RAE SHI MD Jun 29, 2019 09:56
[2019-06-30] MEDS ORDERED: metFORMIN 500 MG TABLET PO SCH (17:00)
[2019-07-02] MEDS ORDERED: ESTRADIOL WEEKLY 0.1 MG PATCH. TD SCH (09:00)
== END 2019-06-29 11:30 | disposition home or self-care (01) | DRG 637 ==
LOC: ER 11:23 → 2 NORTH 13:55
PROVIDERS: ADMIT Internal Medicine; ATTEND Internal Medicine
PROC: 5A09357 Assistance with Respiratory Ventilation, Less than 24 Consecutive Hours, Continuous Positive Airway Pressure (ICD-10-PCS; principal; 2019-06-26)
PROC: 5A09357 Assistance with Respiratory Ventilation, Less than 24 Consecutive Hours, Continuous Positive Airway Pressure (ICD-10-PCS; 2019-06-27)
PROC: 5A09357 Assistance with Respiratory Ventilation, Less than 24 Consecutive Hours, Continuous Positive Airway Pressure (ICD-10-PCS; 2019-06-28)
DX: E11.649 Type 2 diabetes mellitus with hypoglycemia without coma (principal); G93.41 Metabolic encephalopathy; J18.9 Pneumonia, unspecified organism; E66.9 Obesity, unspecified; E78.5 Hyperlipidemia, unspecified; F43.10 Post-traumatic stress disorder, unspecified; G25.81 Restless legs syndrome; G50.0 Trigeminal neuralgia; I10 Essential (primary) hypertension; J45.909 Unspecified asthma, uncomplicated; K21.9 Gastro-esophageal reflux disease without esophagitis; K22.9 Disease of esophagus, unspecified; K59.00 Constipation, unspecified; Z20.6 Contact with and (suspected) exposure to human immunodeficiency virus [HIV]; Z79.51 Long term (current) use of inhaled steroids; Z79.84 Long term (current) use of oral hypoglycemic drugs; Z79.899 Other long term (current) drug therapy; Z82.49 Family history of ischemic heart disease and other diseases of the circulatory system; Z83.3 Family history of diabetes mellitus; Z90.710 Acquired absence of both cervix and uterus; Z96.659 Presence of unspecified artificial knee joint; Z88.2 Allergy status to sulfonamides; Z88.8 Allergy status to other drugs, medicaments and biological substances
CPT/HCPCS: 36415; 70450; 71045; 74177; 80053; 81001; 82962; 83525; 83605; 84145; 84484; 84681; 85025; 86337; 87040; 93005; 94640; 94660; 94760; 96365; 96368; 96376; J0696; J1815; J2543; J3490; J7042; J7613; J7626; Q0144; Q0162; Q9967; 99285-25; G0378